=== PATIENT | male | born 1945 | race Caucasian/White ===

== ENCOUNTER 2020-03-01 07:29 | Outpatient (CLI) | payer MEDICARE ==
[2020-03-01] MEDS ORDERED: Regadenoson 0.4 MG/5 ML SYRINGE ONE (09:19)
--- NOTE | 2020-03-01 09:55 | NM ---
Radionucleotide stress only myocardial perfusion scan with CT attenuation correction and SPECT imagin g Left ventricular wall motion evaluation and ejection fraction HISTORY: Chest pain. FINDINGS: Lexiscan protocol. Homogeneous uptake of radiotracer throughout the left ventricular myocar dium. No focal perfusion defect. QGS analysis of gated SPECT images shows no focal wall motion abnormalities. Ejection fraction calcul ated at 76%. IMPRESSION : No evidence of ischemia. Normal LVEF.
== END 2020-03-01 07:30 | disposition home or self-care (01) ==
LOC: NM 07:29
PROVIDERS: ATTEND Internal Medicine
DX: R07.9 Chest pain, unspecified (principal)
CPT/HCPCS: 78452; 93017; A9500; J2785

== ENCOUNTER 2021-04-22 10:41 | Outpatient (CLI) | payer OTHER | END 2021-04-22 10:42 | disposition home or self-care (01) | LOC: DTY/OP 10:41 | PROVIDERS: ATTEND Surgery | DX: E66.01 Morbid (severe) obesity due to excess calories (principal) | CPT/HCPCS: 97802 ==

== ENCOUNTER 2021-05-25 03:33 | Inpatient (IN) | payer MEDICARE, OTHER ==
[2021-05-25] MEDS ORDERED: Nitroglycerin 0.4 MG TAB (25 Tab Bottle) SL PRN (15:08)
[2021-05-25] MEDS ORDERED: Aspirin 325 mg Enteric Coated Tablet PO SCH (15:15)
[2021-05-25 16:37] LABS: #Eosinphils 0.6 thou/uL (0.0-0.7); #Lymphocytes 2.2 thou/uL (1.20-3.40); #Monocytes 1.1 thou/uL (0.11-0.59); #Neutrophils 5.7 thou/uL (1.40-6.50); %Basophils 0.2 % (0.0-1.0); %Eosinophils 6.3 % (0.0-10.0); %Lymphocytes 23.3 % (21.0-51.0); %Neutrophils 59.3 % (42.0-75.0); Hemoglobin 12.7 g/dL (14.0-18.0); Mean Corpuscular HGB CONC 33.3 g/dL (32.0-36.0); Mean Corpuscular Hemoglobin 29.6 pg (27.0-31.0); Mean Corpuscular Volume 88.9 fL (78.0-98.0); Mean Platelet Volume 7.9 fL (7.4-10.4); Platelet Count 307 thou/uL (130-400); Red Blood Cell (RBC) Count 4.29 mill/uL (4.70-6.10); White Blood Cell (WBC) Count 9.6 thou/uL (4.8-10.8)
[2021-05-25 16:55] LABS: ALT (SGPT) 23 U/L (8-55); AST (SGOT) 18 U/L (5-34); Albumin 4.1 g/dL (3.4-4.8); Alkaline Phosphatase 52 U/L (40-110); Anion Gap 16 mmol/L (10-20); BUN (Urea Nitrogen) 42 mg/dL (8.4-25.7); Bilirubin, Total 0.3 mg/dL (0.2-1.2); Calc. Creatinine Clearance 0 mL/min (70-130); Calcium 10.2 mg/dL (7.8-10.44); Carbon Dioxide 21 mmol/L (23-31); Chloride 107 mmol/L (98-107); Globulin 3.6 g/dL (2.4-3.5); Glucose 103 mg/dL (83-110); Potassium 4.8 mmol/L (3.5-5.1); Protein, Total 7.7 g/dL (5.8-8.1); Sodium 139 mmol/L (136-145)
[2021-05-25] MEDS: Sodium Chloride 0.9% 1,000 ML IV SCH (16:58)
[2021-05-25 17:01] VITALS: BMI 40.8
[2021-05-25] MEDS ORDERED: DC ENOXAPARIN NIGHT BEFORE CATH FS SCH (18:15)
[2021-05-25] MEDS ORDERED: predniSONE 20 MG TAB PO SCH (19:30)
[2021-05-25] MEDS ORDERED: diphenhydrAMINE 12.5 MG/5 ML UDCUP PO SCH (19:30)
[2021-05-25] MEDS: Zolpidem Tartrate 5 MG TAB PO SCH (20:08)
[2021-05-25 21:36] LABS: SARS-CoV-2 PCR by NAA Not Detected (NotDetected)
[2021-05-25] MEDS: Famotidine 20 MG TAB PO SCH (21:44)
[2021-05-26] MEDS: diphenhydrAMINE 50 MG CAP PO SCH ×2 (00:30→05:20)
[2021-05-26] MEDS: predniSONE 20 MG TAB PO SCH ×2 (00:30→05:28)
[2021-05-26] MEDS: Famotidine 20 MG TAB PO SCH (05:20)
[2021-05-26] MEDS: Aspirin 325 mg Enteric Coated Tablet PO SCH (05:20)
[2021-05-26] MEDS: Sodium Chloride 0.9% 1,000 ML IV SCH ×2 (05:23→17:26)
[2021-05-26] MEDS: Allopurinol 100 MG TAB PO SCH (05:29)
[2021-05-26] MEDS: Amlodipine 10 MG TAB PO SCH (05:29)
[2021-05-26] MEDS ORDERED: HOLD HYPOGLYCEMIC MEDS AM OF CATH FS SCH (06:00)
[2021-05-26] MEDS ORDERED: Sodium Chloride 0.9% 1,000 ML IV SCH ×3 (06:00→07:45)
[2021-05-26 06:08] LABS: Anion Gap 18 mmol/L (10-20); BUN (Urea Nitrogen) 39 mg/dL (8.4-25.7); Calc. Creatinine Clearance 63 mL/min (70-130); Calcium 9.8 mg/dL (7.8-10.44); Carbon Dioxide 16 mmol/L (23-31); Cardiac Risk 4.4 (Less than 4.5); Chloride 105 mmol/L (98-107); Cholesterol 122 mg/dl (< 200 Desired); Glucose 151 mg/dL (83-110); HDL Cholesterol 28 mg/dL (>60 Neg Risk); LDL Cholesterol, Calculated 74 mg/dL; Potassium 5.1 mmol/L (3.5-5.1); Sodium 134 mmol/L (136-145); Triglycerides 98 mg/dL (Less than 150)
[2021-05-26] MEDS ORDERED: Heparin 10,000 UNITS/ 10 ML VIAL ONE (06:09)
[2021-05-26] MEDS ORDERED: Iopamidol 370 76% 100 ML VIAL ONE (06:45)
[2021-05-26] MEDS ORDERED: Midazolam HCl 2 mg/2 ml Vial ONE (07:00)
[2021-05-26] MEDS ORDERED: Fentanyl 100 MCG/2 ML VIAL ONE (07:00)
[2021-05-26] MEDS ORDERED: Protamine Sulfate 50 MG/5 ML VIAL ONE (07:19)
[2021-05-26] MEDS ORDERED: Nitroglycerin 0.4 MG TAB (25 Tab Bottle) SL PRN (07:40)
[2021-05-26] MEDS ORDERED: Sodium Chloride 0.9% 200 ML IV PRN (07:40)
[2021-05-26] MEDS ORDERED: Acetaminophen/Codeine 30-300mg Tablet PO PRN ×2 (07:40)
[2021-05-26] MEDS ORDERED: Doxazosin Mesylate 4 MG TAB PO SCH (09:00)
[2021-05-26] MEDS: Zolpidem Tartrate 5 MG TAB PO SCH (19:49)
[2021-05-26] MEDS ORDERED: Mirtazapine 15 MG TAB PO SCH (21:00)
[2021-05-26] MEDS ORDERED: Rosuvastatin 20 MG TAB PO SCH ×2 (21:00)
[2021-05-27 05:01] LABS: Anion Gap 14 mmol/L (10-20); BUN (Urea Nitrogen) 38 mg/dL (8.4-25.7); Calc. Creatinine Clearance 59 mL/min (70-130); Calcium 10.1 mg/dL (7.8-10.44); Carbon Dioxide 22 mmol/L (23-31); Chloride 109 mmol/L (98-107); Glucose 122 mg/dL (83-110); Potassium 4.5 mmol/L (3.5-5.1); Sodium 140 mmol/L (136-145)
[2021-05-27] MEDS: Sodium Chloride 0.9% 1,000 ML IV SCH (05:17)
[2021-05-27] MEDS: Amlodipine 10 MG TAB PO SCH (09:08)
[2021-05-27] MEDS: Aspirin 325 mg Enteric Coated Tablet PO SCH (09:09)
[2021-05-27] MEDS: Allopurinol 100 MG TAB PO SCH (09:09)
[2021-05-27 11:57] VITALS: BP 137/62; TEMP 97.8
[2021-05-28] MEDS ORDERED: Lisinopril 2.5 MG TAB PO SCH (09:00)
[2021-05-28] MEDS ORDERED: Lisinopril 20 MG TAB PO SCH ×2 (09:00)
== END 2021-05-27 14:25 | disposition home or self-care (01) | DRG 287 ==
LOC: 2NO 13:15
PROVIDERS: ADMIT Internal Medicine Cardiovascular Disease; ATTEND Internal Medicine Cardiovascular Disease
PROC: B2101ZZ Fluoroscopy of Single Coronary Artery using Low Osmolar Contrast (ICD-10-PCS; principal; 2021-05-26)
DX: I25.10 Atherosclerotic heart disease of native coronary artery without angina pectoris (principal); Z68.41 Body mass index [BMI] 40.0-44.9, adult; R94.39 Abnormal result of other cardiovascular function study; I10 Essential (primary) hypertension; M10.9 Gout, unspecified; G47.30 Sleep apnea, unspecified; E66.01 Morbid (severe) obesity due to excess calories; Z20.822 Contact with and (suspected) exposure to COVID-19; I12.9 Hypertensive chronic kidney disease with stage 1 through stage 4 chronic kidney disease, or unspecified chronic kidney disease; N18.32 Chronic kidney disease, stage 3b; E78.2 Mixed hyperlipidemia; Z79.82 Long term (current) use of aspirin; Z79.899 Other long term (current) drug therapy; Z87.891 Personal history of nicotine dependence; Z82.49 Family history of ischemic heart disease and other diseases of the circulatory system
CPT/HCPCS: 36415; 71045; 80048; 80053; 80061; 85025; 85347; 93005; 93010; J1644; J2250; J2720; J3010; J7050; J7512; Q0163; Q9967; U0003; U0005

== ENCOUNTER 2021-06-10 09:02 | Outpatient (CLI) | payer MEDICARE ==
[2021-06-10 21:05] LABS: SARS-CoV-2 PCR by NAA Not Detected (NotDetected)
== END 2021-06-10 09:03 | disposition home or self-care (01) ==
LOC: LABBT 09:02
PROVIDERS: ATTEND Surgery
DX: Z01.812 Encounter for preprocedural laboratory examination (principal); E66.01 Morbid (severe) obesity due to excess calories; Z20.822 Contact with and (suspected) exposure to COVID-19
CPT/HCPCS: U0003; U0005

== ENCOUNTER 2021-06-10 09:15 | Inpatient (IN) | payer MEDICARE ==
[2021-06-08 13:20] VITALS: BMI 39.2
[2021-06-15] MEDS ORDERED: HYDROmorphone 0.5 MG/0.5 ML SYRINGE ONE (06:39)
[2021-06-15] MEDS ORDERED: Fentanyl 100 MCG/2 ML VIAL ONE (06:39)
[2021-06-15] MEDS ORDERED: Xylocaine 1% w/ Epi 1:100K 10 ML VIAL ONE (06:46)
[2021-06-15] MEDS ORDERED: Bupivacaine 0.25% HCL 30 ML VIAL ONE (06:46)
[2021-06-15] MEDS ORDERED: Lidocaine 1% (PF) 30 ML VIAL ONE (06:46)
[2021-06-15] MEDS ORDERED: ceFAZolin 2 GM/Dextrose 50 ML IVPB ONE (07:23)
[2021-06-15] MEDS ORDERED: PHENYLEPHRINE-NS 100 MCG/ML 10 ML SYRINGE ONE (07:32)
[2021-06-15] MEDS ORDERED: Lidocaine 1% PF 5 ML VIAL ONE (07:32)
[2021-06-15] MEDS ORDERED: Dexamethasone 20 MG/5 ML VIAL ONE (07:32)
[2021-06-15] MEDS ORDERED: ePHEDrine 50 MG/ML VIAL ONE (07:32)
[2021-06-15] MEDS ORDERED: PROPOFOL 200 MG/20 ML VIAL ONE (07:32)
[2021-06-15] MEDS ORDERED: Glycopyrrolate 0.2 MG/ML 5 ML SYRINGE ONE (07:32)
[2021-06-15] MEDS ORDERED: Ondansetron PF 4 MG/2 ML Vial ONE (07:32)
[2021-06-15] MEDS ORDERED: Rocuronium Bromide 10 MG/ML (10ML VIAL) ONE (07:32)
[2021-06-15] MEDS ORDERED: hydrALAZINE 20 MG/ML VIAL SLOW IVP PRN (09:01)
[2021-06-15] MEDS ORDERED: Dextrose 50% Abboject 50 ML SYRINGE SLOW IVP PRN (09:01)
[2021-06-15] MEDS ORDERED: Hydrocodone-Acetamin 15 ML UDCUP PO PRN (09:01)
[2021-06-15] MEDS ORDERED: Ondansetron PF 4 MG/2 ML Vial IVP PRN ×2 (09:01→09:23)
[2021-06-15] MEDS ORDERED: diphenhydrAMINE 50 MG/ML VIAL IVP PRN ×2 (09:01→09:23)
[2021-06-15] MEDS ORDERED: Promethazine HCl 25 MG/ML VIAL IM PRN ×3 (09:01→09:23)
[2021-06-15] MEDS ORDERED: Dextrose 5% in Water 1,000 ML IV PRN (09:01)
[2021-06-15] MEDS ORDERED: D5 1/2 NS w/20 mEq KCL 1,000 ML IV SCH (09:15)
[2021-06-15] MEDS ORDERED: fentaNYL Citrate/PF 2,000 MCG in Sodium Chloride 0.9% 60 ML IV PRN (09:23)
[2021-06-15] MEDS ORDERED: Promethazine HCl 25 MG/ML VIAL IVPB PRN (09:23)
[2021-06-15] MEDS ORDERED: diphenhydrAMINE 50 MG/ML VIAL IM PRN (09:23)
[2021-06-15] MEDS ORDERED: Zolpidem Tartrate 5 MG TAB PO PRN (09:23)
[2021-06-15] MEDS ORDERED: diphenhydrAMINE 25 MG CAP PO PRN (09:23)
[2021-06-15] MEDS ORDERED: Ondansetron HCl/PF 4 MG/2 ML Vial IVP PRN (09:23)
[2021-06-15] MEDS ORDERED: Naloxone HCl 0.4 mg/ml Vial IV PRN (09:23)
[2021-06-15] MEDS ORDERED: Communication Order-Pharmacy FS SCH (09:30)
[2021-06-15] MEDS ORDERED: Ketorolac Tromethamine 30 MG/ML VIAL IVP SCH (12:00)
[2021-06-15 12:48] VITALS: BP 137/65; TEMP 97
[2021-06-16] MEDS ORDERED: Enoxaparin Sodium 40 MG/0.4 ML SYRINGE SC SCH (06:00)
[2021-06-16] MEDS ORDERED: Pantoprazole 40 MG VIAL IVP SCH (09:00)
[2021-06-17] MEDS ORDERED: Enoxaparin Sodium 40 MG/0.4 ML SYRINGE SC SCH (09:00)
== END 2021-06-15 17:05 | disposition home or self-care (01) | DRG 621 ==
LOC: SURG A 06-15 05:44
PROVIDERS: ADMIT Surgery; ATTEND Surgery
PROC: 0DB64Z3 Excision of Stomach, Percutaneous Endoscopic Approach, Vertical (ICD-10-PCS; principal; 2021-06-15)
DX: E66.01 Morbid (severe) obesity due to excess calories (principal); Z20.822 Contact with and (suspected) exposure to COVID-19; G47.33 Obstructive sleep apnea (adult) (pediatric); M10.9 Gout, unspecified; M19.90 Unspecified osteoarthritis, unspecified site; I10 Essential (primary) hypertension; E78.5 Hyperlipidemia, unspecified; Z91.041 Radiographic dye allergy status; Z91.013 Allergy to seafood; Z99.89 Dependence on other enabling machines and devices; Z68.39 Body mass index [BMI] 39.0-39.9, adult; Z87.891 Personal history of nicotine dependence; Z79.899 Other long term (current) drug therapy
CPT/HCPCS: 88307; C1713; J0690; J1100; J1170; J1885; J2001; J2405; J2704; J3010; J3480; J3490; S0020